=== PATIENT | female | born 1955 | race Caucasian/White ===

== ENCOUNTER → 2024-03-06 | Outpatient (CLI) | payer BC, SELFPAY ==
--- NOTE | 2024-03-06 11:35 | RAD_ITS ---
STUDY: X-RAY - CERVICAL SPINE REASON FOR EXAM: Female, 68 years old. Neck pain. TECHNIQUE: 5 view(s) of the cervical spine were obtained. COMPARISON: None FINDINGS: Osteopenia. Normal anterior atlantoaxial articulation. Normal odontoid process. Normal cervical lordosis. Diffuse moderate uncovertebral and facet sclerosis. Anterior fusion from C5 to C7 with intervertebral disc prostheses. Mild intervertebral disc space narrowing at C4-5 and C7-T1. Anterior bony neural foraminal encroachment at C6-7 bilaterally. Normal soft tissues. RAD/Cerv Spine 4 or 5 Views IMPRESSION: Osteopenia with uncomplicated anterior fusion from C5 to C7. Diffuse uncovertebral and facet sclerosis with intervertebral disc space narrowing at C4-5 and C7-T1. Anterior bony neural foraminal encroachment at C5-6 bilaterally. Electronically Signed: Segun Walls MD at 10:15 EDT ,
== END | disposition home or self-care (01) ==
PROVIDERS: PCP Family Medicine; Referring Provider Family Medicine; Visit Provider Family Medicine
DX: M54.2 Cervicalgia (principal)
CPT/HCPCS: 72050